=== PATIENT | female | born 1935 | race Caucasian/White ===

== ENCOUNTER 2017-11-02 12:57 | Emergency (ER) | payer MEDICARE ==
--- NOTE | 2017-11-02 13:24 | ED ---
Hypertension - HPI Summary HPI Summary: This is scribe Roldan Hercules documenting for attending Ammon Beal MD. A 81 y/o female presents to ED c/o HTN reaching 6/10 in severity. Additionally c /o headache, fatigue, dizziness and pain during urination. As per triage, " Pt c /o high blood pressure, dizziness, pressure in head, and burning when she urinates". According to the patient, she started to experience HTN, dizziness ( head-spinning, off-balance), headache (pressure in head) and fatigue approximately one week ago, with the urinary burning pain starting four days ago. She noted that he symptoms seemed to have worsened since onset. She noted that she has also been having blurred vision most likely due to fatigue. Patient is nervous to walk because of the dizziness as standing up aggravates the symptoms. Patient has no history with these issues. She noted that she has similar symptoms when her blood pressure gets high as it is. Currently on blood pressure medications. PCP in [place]. I, Dr. Beal, personally performed the services described in this documentation as scribed in my presence and it is both accurate and complete. - History of Current Complaint Chief Complaint: EDHypertension Stated Complaint: HIGH BP Time Seen by Provider: 11/02/17 13:21 Hx Obtained From: Patient Onset/Duration: Started Weeks Ago, Still Present Timing: Constant Aggravating Factor(s): Position Alleviating Factor(s): Nothing Associated Signs & Symptoms: Vision Changes, Headaches, Dizziness, Urinary Symptoms - Allergies/Home Medications Allergies/Adverse Reactions: Allergies Allergy/AdvReac Type Severity Reaction Status Date / Time olmesartan [From Benicar] Allergy Hives Verified 11/02/17 13:24 Home Medications: Home Medications cloNIDine TAB* [Catapres 0.1 MG TAB*] 0.1 mg PO BID 11/02/17 [History Confirmed 11/02/17] PMH/Surg Hx/FS Hx/Imm Hx Endocrine/Hematology History: Denies: Hx Diabetes Cardiovascular History: Reports: Hx Hypertension Denies: Hx Congestive Heart Failure Infectious Disease History: No Infectious Disease History: Denies: Traveled Outside the [place] in Last 30 Days - Family History Known Family History: Negative: Cardiac Disease, Hypertension - Social History Alcohol Use: None Hx Substance Use: No Substance Use Type: Reports: None Hx Tobacco Use: No Smoking Status (MU): Never Smoked Tobacco Review of Systems Positive: Fatigue. Negative: Fever Positive: Blurred Vision Positive: Other - POSITIVE: HTN Positive: burning, pain Neurological: Other - POSITIVE: Dizziness Positive: Headache All Other Systems Reviewed And Are Negative: Yes Physical Exam - Summary Physical Exam Summary: Appearance: The patient is well-nourished in no acute distress and in no acute pain. Unremarkable exam. Skin: The skin is warm and dry and skin color reflects adequate perfusion. HEENT: The head is normocephalic and atraumatic. The pupils are equal and reactive. The conjunctivae are clear and without drainage. Nares are patent and without drainage. Mouth reveals moist mucous membranes and the throat is without erythema and exudate. The external ears are intact. The ear canals are patent and without drainage. The tympanic membranes are intact. Neck: The neck is supple with full range of motion and non-tender. There are no carotid bruits. There is no neck vein distension. Respiratory: Chest is non-tender. Lungs are clear to auscultation and breath sounds are symmetrical and equal. Cardiovascular: Heart is regular rate and rhythm. There is no murmur or rub auscultated. There is no peripheral edema and pulses are symmetrical and equal. Abdomen: The abdomen is soft and non-tender. There are normal bowel sounds heard in all four quadrants and there is no organomegaly palpated. Musculoskeletal: There is no back tenderness noted. Extremities are non-tender with full range of motion. There is good capillary refill. There is no peripheral edema or calf tenderness elicited. Neurological: Patient is alert and oriented to person, place and time. The patient has symmetrical motor strength in all four extremities. Cranial nerves are grossly intact. Deep tendon reflexes are symmetrical and equal in all four extremities. Psychiatric: The patient has an appropriate affect and does not exhibit any anxiety or depression. GCS: 15 Triage Information Reviewed: Yes Vital Signs On Initial Exam: Initial Vitals Temp Pulse Resp BP Pulse Ox 97.8 F 67 14 0/0 98 11/02/17 13:00 11/02/17 13:00 11/02/17 13:00 11/02/17 13:00 11/02/17 13:00 Vital Signs Reviewed: Yes Diagnostics - Vital Signs Vital Signs Temp Pulse Resp BP Pulse Ox 11/02/17 13:00 97.8 F 67 14 0/0 98 - Laboratory Result Diagrams: 11/02/17 14:11 11/02/17 14:11 Lab Statement: Any lab studies that have been ordered have been reviewed, and results considered in the medical decision making process. - CT BRAIN CT CT Interpretation Completed By: Radiologist - NO ACUTE INTRACRANIAL PATHOLOGY. ED physician reviewed this radiology report. - EKG 1350 Cardiac Rate: Bradycardia - 56 BPM EKG Rhythm: Sinus Bradycardia Hypertension Course/Dx - Course Course Of Treatment: Ms. Long remained hypertensive during her stay in the ED. Her son was with her and tells me that her blood pressure is usually this high. She is from [place] and here for several more weeks. He also tells me that she has been C/O the dizziness for several weeks although more so in the last week. Although a posterior event is possible, this has apparently been going on for quite awhile and the CT is negative. She may need an MRI at some point. Her pressure is high but shouldn't be causing symptoms. She is taking 20 mgs of Bystolic a day and has room to go up. She takes clonidine if her pressure gets above 200. I think she needs further care while she is her in [place] and she has agreed to F/U with [facility] the first of the week. - Diagnoses Provider Diagnoses: HTN (hypertension), Dehydration Discharge - Sign-Out/Discharge Documenting (check all that apply): Patient Departure - DISCHARGE - Discharge Plan Condition: Stable Disposition: HOME Patient Education Materials: Dehydration (ED), Hypertension (ED) Referrals: [facility] [Outside] - 3 Days Additional Instructions: FOLLOW UP WITH PRIMARY CARE OR [facility] IN 2-3 DAYS. RETURN TO ED FOR ANY NEW OR WORSENING SYMPTOMS. - Billing Disposition and Condition Condition: STABLE Disposition: Home
[2017-11-02 14:14] LABS: Urine Appearance Clear; Urine Blood Negative (Negative); Urine Color Straw; Urine Ketones Negative (Negative); Urine Protein Negative (Negative); Urine Red Blood Cell Absent (Absent); Urine Specific Gravity 1.008 (1.010-1.030); Urine Urobilinogen Negative (Negative); Urine White Blood Cell Trace(0-5/hpf) (Absent)
[2017-11-02 14:18] LABS: Hematocrit 38 % (35-47); Hemoglobin 13.1 g/dl (12.0-16.0); Mean Corpuscular HGB Conc 34 g/dl (31-36); Mean Corpuscular Hemoglobin 31 pg (27-31); Mean Corpuscular Volume 91 fL (80-97); Mean Platelet Volume 11.7 um3 (7.4-10.4); Platelet Count 135 10^3/ul (150-450); Red Blood Count 4.23 10^6/ul (4.00-5.40); Red Cell Distribution Width 13 % (10.5-15); White Blood Count 6.3 10^3/ul (3.5-10.8)
[2017-11-02 14:37] LABS: EGFR Non-African American 39.3 (>60)
[2017-11-02 14:40] LABS: ABS Basophils 0 10^3/ul (0-0.2); ABS Eosinophils 0.2 10^3/ul (0-0.6); ABS Lymphocytes 0.9 10^3/ul (1.0-4.8); ABS Monocytes 0.6 10^3/ul (0-0.8); ABS Neutrophils 4.6 10^3/ul (1.5-7.7); ABS Nucleated RBC 0 10^3/ul; Eosinophil % 2.4 % (0-6); Lymphocyte % 14.8 % (25-47); Nucleated Red Blood Cells % 0
[2017-11-02 14:50] LABS: INR 0.87 (0.77-1.02)
--- NOTE | 2017-11-02 14:53 | RAD ---
HISTORY: ataxia COMPARISONS: None TECHNIQUE: Multiple contiguous axial CT scans were obtained of the head without intravenous contrast. FINDINGS: HEMORRHAGE/INFARCT: There is no hemorrhage or acute infarct. MASSES/SHIFT: There is no mass or shift. EXTRA-AXIAL SPACES: There are no extra-axial fluid collections. SULCI AND VENTRICLES: The sulci and ventricles are normal in size and position for the patient's stated age. CEREBRUM: There are no focal parenchymal abnormalities. BRAINSTEM: There are no focal parenchymal abnormalities. CEREBELLUM: There are no focal parenchymal abnormalities. VESSELS: The vessels are grossly normal. PARANASAL SINUSES: The paranasal sinuses are clear. ORBITS: The orbits are unremarkable. BONES AND SOFT TISSUE: No bone or soft tissue abnormalities are noted. OTHER: None IMPRESSION: NO ACUTE INTRACRANIAL PATHOLOGY.
[2017-11-02 19:09] VITALS: BP 167/82
== END 2017-11-02 19:08 | disposition home or self-care (01) ==
LOC: ED 12:57
DX: I10 Essential (primary) hypertension (principal); E86.0 Dehydration; R00.1 Bradycardia, unspecified; Z79.899 Other long term (current) drug therapy; Z88.8 Allergy status to other drugs, medicaments and biological substances
CPT/HCPCS: 36415; 70450; 80053; 81003; 81015; 83605; 83735; 84443; 84484; 85025; 85610; 86140; 87086; 93005; 99282